=== PATIENT | female | born 1970 | race Caucasian/White ===

== ENCOUNTER → 2021-05-17 08:17 | Outpatient (CLI) | payer BC, SELFPAY ==
--- NOTE | ~2021-05-17 | MR_ITS ---
EXAMINATION: MR knee LT wo con DATE: 05/17/2021 09:00 INDICATION: Left knee joint effusion TECHNIQUE: Magnetic resonance imaging (MRI) of the left knee was performed without intravenous contra st. Sequences included coronal PD-weighted FSE, coronal PD-weighted FS FSE, sagittal T2-weighted FSE , sagittal PD-weighted FS FSE and axial PD weighted fat saturated FSE. COMPARISON: None. FINDINGS: Medial compartment: Medial meniscus is normal. Articular cartilage is normal. Lateral compartment: Lateral meniscus is normal. Articular cartilage is normal. Patellofemoral compartment: Deep chondral ulceration at the patellar apical ridge and immediately adjacent medial and lateral fac ets with a few tiny foci of edema-like subarticular marrow signal change. Partial-thickness chondral ulceration with deep fissuring at the inferior aspect of the medial trochlea. Ligaments and tendons: Anterior and posterior cruciate ligaments are normal. The medial collateral ligament and fibular zabrina ateral ligament complex are normal. Mild distal quadriceps tendinopathy without discrete tear. The pa tellar tendon is normal. The visualized medial and lateral hamstring tendons as well as the iliotibia l band are normal. Fluid: Physiologic amount of fluid with minimal synovitis at the suprapatellar pouch. No loose osteochondral bodies identified. Minimal fluid at a small Gross's cyst. Osseous/other: Bone alignment is normal. No fracture or pathologic marrow replacing process. IMPRESSION: 1. 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 2. Mild quadriceps tendinopathy. Reviewed, dictated and finalized at location A. RY DRIER OPERATOR IMPRESSION: 1. Mild patellofemoral osteoarthritis with regions of moderate to high-grade ch ondromalacia at both the patella and trochlea. 2. Mild quadriceps tendinopathy.
== END ==
PROVIDERS: PCP Family Medicine; Visit Provider Family Medicine
DX: M25.462 Effusion, left knee (principal); M23.92 Unspecified internal derangement of left knee; M17.12 Unilateral primary osteoarthritis, left knee; S76.112A Strain of left quadriceps muscle, fascia and tendon, initial encounter
CPT/HCPCS: 73721

== ENCOUNTER → 2023-04-21 16:04 | Outpatient (CLI) | payer BC, SELFPAY ==
--- NOTE | ~2023-04-21 | XR_ITS ---
XR hip LT 2V w AP pelvis DATE: 04/21/2023 16:23 INDICATION: Radiculopathy TECHNIQUE: AP pelvis, AP and lateral left hip COMPARISON: None FINDINGS: No pelvic fracture or bone destruction. The pubic symphysis and sacroiliac joints are inta ct. Hip joint spaces are well preserved. No left hip fracture or bone destruction, avascular necros is or bone destruction. IMPRESSION: Negative Reviewed, dictated and finalized at location B. ISH COMPOSITION INSTRUCTOR IMPRESSION: Negative
--- NOTE | ~2023-04-21 | XR_ITS ---
EXAMINATION: XR thoracic spine 2V DATE: 04/21/2023 16:23 INDICATION: Radiculopathy TECHNIQUE: AP, lateral and lateral swimmer's views of the thoracic spine were obtained. COMPARISON: None. FINDINGS: Bone alignment is normal. There is no fracture. There is mild loss of intervertebral disc s pace height at multiple levels in the thoracic spine. The vertebral body heights are maintained. Smal l degenerative osteophytes project from the anterior endplates of multiple vertebral bodies. IMPRESSION: 1. Mild thoracic spondylosis without acute findings. Reviewed, dictated and finalized at location F. PER DRIVER
== END ==
PROVIDERS: PCP Nurse Practitioner Family; Visit Provider Nurse Practitioner Family
DX: M43.04 Spondylolysis, thoracic region (principal)
CPT/HCPCS: 72070; 73502

== ENCOUNTER → 2023-06-05 16:13 | Outpatient (CLI) | payer BC, SELFPAY ==
--- NOTE | ~2023-06-05 | XR_ITS ---
Lumbosacral Spine: AP, oblique, and lateral views Clinical History: Pain Findings: The normal lordotic curve is maintained. The vertebral bodies and posterior elements are i ntact. The intervertebral disc spaces are preserved. And mild facet joint degenerative changes are p resent. The sacroiliac joints are normally outlined. Impression: Mild facet arthropathy in the lumbar spine. Reviewed, dictated and finalized at location . ATRIC ASSISTANT Impression: Mild facet arthropathy in the lumbar spine.
== END ==
PROVIDERS: PCP Family Medicine; Visit Provider Family Medicine
DX: M54.50 Low back pain, unspecified (principal); M79.662 Pain in left lower leg
CPT/HCPCS: 72110

== ENCOUNTER 2023-07-30 12:27 | Outpatient (CLI) | payer BC, SELFPAY ==
--- NOTE | ~2023-07-30 | XR_ITS ---
EXAMINATION: XR chest 2V 07/30/2023 12:42 INDICATION: Chronic cough PROCEDURE: 2 view chest COMPARISON: No prior studies for comparison. FINDINGS: The lungs are clear. The cardiomediastinal silhouette is within normal limits. There are no pleural effusions. There is no pneumothorax suspected. IMPRESSION: 1: NO ACUTE CARDIOPULMONARY DISEASE. Reviewed, dictated and finalized at location B.
== END 2023-07-30 12:28 ==
PROVIDERS: PCP Family Medicine; Visit Provider Family Medicine
DX: R05.3 Chronic cough (principal)
CPT/HCPCS: 71046

== ENCOUNTER 2023-09-03 13:34 | Outpatient (CLI) | payer BC, SELFPAY ==
--- NOTE | ~2023-09-03 | XR_ITS ---
EXAMINATION: XR lg joint inject/asp w image DATE: 09/03/2023 14:34 INDICATION: Left hip pain. TECHNIQUE: A time-out was performed to verify the patient's name, date of , and procedure to b e performed. The procedure including the risks, benefits, and alternatives was discussed with the pat ient. Risks discussed included bleeding and infection. The patient understood the risks and agreed to proceed. The skin overlying the left joint was prepped and draped in usual sterile fashion. Anesth etic was administered with 1% lidocaine subcutaneously. A 22 G needle was advanced under fluoroscopi c guidance into the joint. Subsequently, injectate consisting of 3 mL 1% lidocaine and 1 mL 80 mg/mL Depo-Medrol was instilled. The needle was removed and the entry site was cleaned and dressed. There were no immediate complications. Fluoroscopy exposure time was 0.1 minutes. The total number of imag es was 1. FINDINGS: Real-time fluoroscopy demonstrates the needle in the left hip joint. Patient's pain prior t o procedure:08/14. Patient's pain following the procedure: 04/16. IMPRESSION: 1. Fluoroscopy guided left hip joint injection of local anesthetic and steroid with decrease in the p atient's presenting pain. Reviewed, dictated and finalized at location A. IMPRESSION: 1. Fluoroscopy guided left hip joint injection of local anesthetic and steroid with decrease in the patient's presenting pain.
== END 2023-09-03 13:35 | disposition home or self-care (01) ==
LOC: ANHIMG 13:37
PROVIDERS: PCP Family Medicine; Visit Provider Orthopaedic Surgery
DX: M25.552 Pain in left hip (principal)
CPT/HCPCS: 20610; 77002; J3301

== ENCOUNTER 2023-09-05 09:04 | Outpatient (CLI) | payer BC, SELFPAY ==
--- NOTE | ~2023-09-05 | CT_ITS ---
CT Scan of the Chest without Contrast: Clinical Indication: Cough Technique: Contiguous sections were acquired throughout the chest without intravenous contrast. Dose reduction technique was used on this scan by utilizing automated exposure control and iterative recon struction technique. The dose-length product (DLP) was 478.51 mGy-cm. Findings: There is no evidence of any significant mediastinal, hilar or axillary lymphadenopathy. The mediastin al soft tissues appear normal. There is no evidence of pleural or pericardial effusion. There is a 1 cm nodule peripherally in the right middle lobe (axial image 68). Images through the upper abdomen reveal no abnormalities. Impression: 1 cm right middle lobe pulmonary nodule, indeterminate. Consider PET/CT, tissue sampling, or possibly short-term follow-up CT to reassess. Reviewed, dictated and finalized at [facility]. Impression: 1 cm right middle lobe pulmonary nodule, indeterminate. Consider PET/CT, tissue sampling, or possibly short-term follow-up CT to reassess.
== END 2023-09-05 09:05 ==
LOC: GOSHIMG 09:08
PROVIDERS: PCP Family Medicine; Visit Provider Family Medicine
DX: R91.1 Solitary pulmonary nodule (principal)
CPT/HCPCS: 71250